=== PATIENT | male | born 1975 | race African-American/Black ===

== ENCOUNTER 2020-02-15 00:06 | Emergency (ER) | payer MEDICAID ==
[~2020-02-15] VITALS: Ht 185.4 cm; Wt 120.0 kg
[2020-02-15] MEDS ORDERED: KETOROLAC 30MG/ML VIAL IM ONE (01:00)
[2020-02-15] MEDS ORDERED: HYDROCODONE/ACETAMINOPHEN 10/325MG TABLET PO ONE (01:00)
[2020-02-15] MEDS ORDERED: SODIUM CHLORIDE 0.9% 1,000 ML IV ONE (03:29)
[2020-02-15] MEDS ORDERED: FENTANYL CITRATE/PF 50MCG/ML 2ML VIAL IV ONE (03:30)
[2020-02-15] MEDS ORDERED: ONDANSETRON HCL 4MG/2ML INJ IV ONE (03:30)
[2020-02-15] MEDS ORDERED: KETAMINE HCL 50 MG/ML 10ML IV ONE ×2 (03:30→04:45)
[2020-02-15 07:31] VITALS: BP 180/100
== END 2020-02-15 07:39 | disposition home or self-care (01) ==
LOC: ER 00:06
DX: S62.311B Displaced fracture of base of second metacarpal bone, left hand, initial encounter for open fracture (principal); S62.313B Displaced fracture of base of third metacarpal bone, left hand, initial encounter for open fracture; S62.315B Displaced fracture of base of fourth metacarpal bone, left hand, initial encounter for open fracture; S62.317B Displaced fracture of base of fifth metacarpal bone, left hand, initial encounter for open fracture; S42.001A Fracture of unspecified part of right clavicle, initial encounter for closed fracture; M47.892 Other spondylosis, cervical region; V43.62XA Car passenger injured in collision with other type car in traffic accident, initial encounter; Y93.89 Activity, other specified; Y92.410 Unspecified street and highway as the place of occurrence of the external cause
CPT/HCPCS: 71045; 72125; 73030; 73090; 73110; 73120; 73130; 73200; 96372; 96374; 96375; 99152; 99285; J1885; J2405; J3010; J3490; J7030

== ENCOUNTER 2023-11-05 14:23 | Emergency (ER) | payer MEDICAID, OTHER ==
[~2023-11-05] VITALS: Ht 182.9 cm; Wt 100.0 kg
[2023-11-05 14:44] VITALS: TEMP 98.3; O2SAT 99
[2023-11-05 18:17] LABS: BASOPHILS % 0.6 % (0.0-2.0); DIFFERENTIAL COMMENT 0; EOSINOPHILS % 1.7 % (0.0-5.0); HEMATOCRIT. 36.4 % (42.0-52.0); HEMOGLOBIN. 11.5 g/dL (14.0-18.0); LYMPHOCYTES % 15.8 % (20.0-50.0); MEAN CORPUSCULAR HEMOGLOBIN 22.8 pg (28.0-32.0); MEAN CORPUSCULAR HGB CONC 31.7 g/dL (31.0-37.0); MEAN CORPUSCULAR VOLUME 71.9 fL (80.0-94.0); MEAN PLATELET VOLUME 8.9 fl (7.4-10.4); MONOCYTES % 8.6 % (2.0-8.0); NEUTROPHILS % 73.3 % (40.0-76.0); PLATELET 202 x1000/uL (130-400); RED BLOOD CELL COUNT 5.06 mill/uL (4.7-6.1); RED CELL DISTRIBUTION WIDTH 17.8 % (11.6-14.6); WHITE BLOOD COUNT 9.7 x1000/uL (4.5-11.0)
[2023-11-05 18:33] LABS: ALANINE AMINOTRANSFERASE 26 IU/L (10-49); ASPARTATE AMINOTRANSFERASE 18 IU/L (<34); BILIRUBIN TOTAL 0.5 mg/dL (0.1-1.0); CALCIUM 8.8 mg/dL (8.7-10.4); CARBON DIOXIDE 31 mEq/L (21-32); CHLORIDE 104 mEq/L (98-107); CREATININE 0.9 mg/dL (0.6-1.3); GLUCOSE 98 mg/dL (70-105); POTASSIUM 3.8 mEq/L (3.5-5.1); PROTEIN TOTAL 8.2 g/dL (6.0-8.3); SODIUM 139 mEq/L (136-145); UREA NITROGEN BLOOD 12 mg/dL (9-23)
[2023-11-05] MEDS ORDERED: AMOX1TAB16 MT (19:47)
[2023-11-05] MEDS ORDERED: OFLO5DRO4 LEFT EAR (19:47)
[2023-11-05] MEDS ORDERED: KETOROLAC 60MG/2ML VIAL IM ONE (20:00)
[2023-11-05 20:04] VITALS: BP 157/100; PULSE 94; RESP 18
== END 2023-11-05 19:58 | disposition home or self-care (01) ==
LOC: ER 14:23
DX: J34.89 Other specified disorders of nose and nasal sinuses (principal); H66.92 Otitis media, unspecified, left ear
CPT/HCPCS: 99285; 70450; 80053; 85025; 36415; 70486; 96372; J1885; 70487